=== PATIENT | male | born 1985 | race Caucasian/White ===

== ENCOUNTER 2018-12-15 18:02 | Emergency (ER) | payer BC, OTHER ==
[~2018-12-15] VITALS: Ht 188 cm; Wt 81.6 kg
--- OUTSIDE RECORDS SUMMARY | 2018-12-15 18:08 | XMS REPORT | Continuity of Care Document ---
Demographics Preferred Language Unknown Marital Status Unknown Orthodox Affiliation Unknown Race Unknown Ethnic Group Unknown Author Organization Unknown Address Unknown Allergies Active Description Code Type Severity Reaction Onset Reported/Identified Relationship to Patient Clinical Status Yes CIPRO MILD MILD Yes NO KNOWN DRUG ALLERGIES UNKNOWN UNKNOWN Medications Medication Packaging Start Date Stop Date Route Dosage Sig ONDANSETRON VIAL INJ 4 MG/2CC (ZOFRAN 2CC VIAL) MG 12/14/2018 12/14/2018 PRN ONCE LORAZEPAM 1CC VIAL INJ 2 MG/CC (ATIVAN VIAL) MG 12/14/2018 12/14/2018 PRN ONCE NORMAL SALINE 1000CC IV BAG INJ 0.9 % (NS 1000CC IV BAG) ml 12/14/2018 12/29/2018 CONTINUOUSEVERY 0 Hour Normal SALINE 0.9 % (NS 100cc) (plain bag) ml 12/14/2018 12/14/2018 ONCE&2027 Problems Date Dx Coded Attending Type Code Diagnosis Diagnosed By 12/14/2018 W 593.9 UNSPECIFIED DISORDER OF KIDNEY AND URETER 12/14/2018 W 593.9 UNSPECIFIED DISORDER OF KIDNEY AND URETER 12/14/2018 W 593.9 UNSPECIFIED DISORDER OF KIDNEY AND URETER 12/14/2018 W 275.42 HYPERCALCEMIA 12/14/2018 W 593.9 UNSPECIFIED DISORDER OF KIDNEY AND URETER 12/14/2018 W E83.52 HYPERCALCEMIA 12/14/2018 W 275.42 HYPERCALCEMIA 12/14/2018 W 593.9 UNSPECIFIED DISORDER OF KIDNEY AND URETER 12/14/2018 W E83.52 HYPERCALCEMIA 12/14/2018 W 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 12/14/2018 W 275.42 HYPERCALCEMIA 12/14/2018 W 593.9 UNSPECIFIED DISORDER OF KIDNEY AND URETER 12/14/2018 W E83.41 HYPERMAGNESEMIA 12/14/2018 W E83.52 HYPERCALCEMIA 12/14/2018 W 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 12/14/2018 W 275.42 HYPERCALCEMIA 12/14/2018 W 593.9 UNSPECIFIED DISORDER OF KIDNEY AND URETER 12/14/2018 W 791.9 OTHER NONSPECIFIC FINDINGS ON EXAMINATION OF URINE 12/14/2018 W E83.41 HYPERMAGNESEMIA 12/14/2018 W E83.52 HYPERCALCEMIA 12/14/2018 W 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, NOT ELSEWHERE CLASSIFIED 12/14/2018 W 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 12/14/2018 W 275.42 HYPERCALCEMIA 12/14/2018 W 593.9 UNSPECIFIED DISORDER OF KIDNEY AND URETER 12/14/2018 W 791.9 OTHER NONSPECIFIC FINDINGS ON EXAMINATION OF URINE 12/14/2018 W E83.41 HYPERMAGNESEMIA 12/14/2018 W E83.52 HYPERCALCEMIA 12/14/2018 W 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, NOT ELSEWHERE CLASSIFIED 12/14/2018 W 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 12/14/2018 W 275.42 HYPERCALCEMIA 12/14/2018 W 277.4 DISORDERS OF BILIRUBIN EXCRETION 12/14/2018 W 593.9 UNSPECIFIED DISORDER OF KIDNEY AND URETER 12/14/2018 W 791.9 OTHER NONSPECIFIC FINDINGS ON EXAMINATION OF URINE 12/14/2018 W E80.6 OTHER DISORDERS OF BILIRUBIN METABOLISM 12/14/2018 W E83.41 HYPERMAGNESEMIA 12/14/2018 W E83.52 HYPERCALCEMIA 12/14/2018 W 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, NOT ELSEWHERE CLASSIFIED 12/14/2018 W 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 12/14/2018 W 275.42 HYPERCALCEMIA 12/14/2018 W 277.4 DISORDERS OF BILIRUBIN EXCRETION 12/14/2018 W 593.9 UNSPECIFIED DISORDER OF KIDNEY AND URETER 12/14/2018 W 791.9 OTHER NONSPECIFIC FINDINGS ON EXAMINATION OF URINE 12/14/2018 W E80.6 OTHER DISORDERS OF BILIRUBIN METABOLISM 12/14/2018 W E83.41 HYPERMAGNESEMIA 12/14/2018 W E83.52 HYPERCALCEMIA 12/14/2018 W 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, NOT ELSEWHERE CLASSIFIED 12/14/2018 W 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 12/14/2018 W 275.42 HYPERCALCEMIA 12/14/2018 W 277.4 DISORDERS OF BILIRUBIN EXCRETION 12/14/2018 W 593.9 UNSPECIFIED DISORDER OF KIDNEY AND URETER 12/14/2018 W 791.9 OTHER NONSPECIFIC FINDINGS ON EXAMINATION OF URINE 12/14/2018 W E80.6 OTHER DISORDERS OF BILIRUBIN METABOLISM 12/14/2018 W E83.41 HYPERMAGNESEMIA 12/14/2018 W E83.52 HYPERCALCEMIA 12/14/2018 W 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, NOT ELSEWHERE CLASSIFIED 12/14/2018 W 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 12/14/2018 W 275.42 HYPERCALCEMIA 12/14/2018 W 277.4 DISORDERS OF BILIRUBIN EXCRETION 12/14/2018 W 593.9 UNSPECIFIED DISORDER OF KIDNEY AND URETER 12/14/2018 W 729.82 CRAMP OF LIMB 12/14/2018 W 791.9 OTHER NONSPECIFIC FINDINGS ON EXAMINATION OF URINE 12/14/2018 W E80.6 OTHER DISORDERS OF BILIRUBIN METABOLISM 12/14/2018 W E83.41 HYPERMAGNESEMIA 12/14/2018 W E83.52 HYPERCALCEMIA 12/14/2018 W 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, NOT ELSEWHERE CLASSIFIED 12/14/2018 W G47.62 SLEEP RELATED LEG CRAMPS 12/14/2018 W 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 12/14/2018 W 275.42 HYPERCALCEMIA 12/14/2018 W 277.4 DISORDERS OF BILIRUBIN EXCRETION 12/14/2018 W 593.9 UNSPECIFIED DISORDER OF KIDNEY AND URETER 12/14/2018 W 729.82 CRAMP OF LIMB 12/14/2018 W 791.9 OTHER NONSPECIFIC FINDINGS ON EXAMINATION OF URINE 12/14/2018 W E80.6 OTHER DISORDERS OF BILIRUBIN METABOLISM 12/14/2018 W E83.41 HYPERMAGNESEMIA 12/14/2018 W E83.52 HYPERCALCEMIA 12/14/2018 W 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, NOT ELSEWHERE CLASSIFIED 12/14/2018 W G47.62 SLEEP RELATED LEG CRAMPS 12/14/2018 W 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 12/14/2018 W 275.42 HYPERCALCEMIA 12/14/2018 W 277.4 DISORDERS OF BILIRUBIN EXCRETION 12/14/2018 W 593.9 UNSPECIFIED DISORDER OF KIDNEY AND URETER 12/14/2018 W 729.82 CRAMP OF LIMB 12/14/2018 W 791.9 OTHER NONSPECIFIC FINDINGS ON EXAMINATION OF URINE 12/14/2018 W E80.6 OTHER DISORDERS OF BILIRUBIN METABOLISM 12/14/2018 W E83.41 HYPERMAGNESEMIA 12/14/2018 W E83.52 HYPERCALCEMIA 12/14/2018 W 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, NOT ELSEWHERE CLASSIFIED 12/14/2018 W G47.62 SLEEP RELATED LEG CRAMPS 12/14/2018 W 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 12/14/2018 W 275.42 HYPERCALCEMIA 12/14/2018 W 277.4 DISORDERS OF BILIRUBIN EXCRETION 12/14/2018 W 593.9 UNSPECIFIED DISORDER OF KIDNEY AND URETER 12/14/2018 W 729.82 CRAMP OF LIMB 12/14/2018 W 791.9 OTHER NONSPECIFIC FINDINGS ON EXAMINATION OF URINE 12/14/2018 W E80.6 OTHER DISORDERS OF BILIRUBIN METABOLISM 12/14/2018 W E83.41 HYPERMAGNESEMIA 12/14/2018 W E83.52 HYPERCALCEMIA 12/14/2018 W 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, NOT ELSEWHERE CLASSIFIED 12/14/2018 W G47.62 SLEEP RELATED LEG CRAMPS 12/14/2018 W R25.2 CRAMP AND SPASM 12/14/2018 W 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 12/14/2018 W 275.42 HYPERCALCEMIA 12/14/2018 W 277.4 DISORDERS OF BILIRUBIN EXCRETION 12/14/2018 W 593.9 UNSPECIFIED DISORDER OF KIDNEY AND URETER 12/14/2018 W 729.82 CRAMP OF LIMB 12/14/2018 W 791.9 OTHER NONSPECIFIC FINDINGS ON EXAMINATION OF URINE 12/14/2018 W E80.6 OTHER DISORDERS OF BILIRUBIN METABOLISM 12/14/2018 W E83.41 HYPERMAGNESEMIA 12/14/2018 W E83.52 HYPERCALCEMIA 12/14/2018 W 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, NOT ELSEWHERE CLASSIFIED 12/14/2018 W G47.62 SLEEP RELATED LEG CRAMPS 12/14/2018 W R25.2 CRAMP AND SPASM 12/14/2018 W 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 12/14/2018 W 275.42 HYPERCALCEMIA 12/14/2018 W 277.4 DISORDERS OF BILIRUBIN EXCRETION 12/14/2018 W 593.9 UNSPECIFIED DISORDER OF KIDNEY AND URETER 12/14/2018 W 729.82 CRAMP OF LIMB 12/14/2018 W 791.9 OTHER NONSPECIFIC FINDINGS ON EXAMINATION OF URINE 12/14/2018 W E80.6 OTHER DISORDERS OF BILIRUBIN METABOLISM 12/14/2018 W E83.41 HYPERMAGNESEMIA 12/14/2018 W E83.52 HYPERCALCEMIA 12/14/2018 W 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, NOT ELSEWHERE CLASSIFIED 12/14/2018 W G47.62 SLEEP RELATED LEG CRAMPS 12/14/2018 W R25.2 CRAMP AND SPASM 12/14/2018 W 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 Results Test Result Range Comprehensive Metabolic Panel - 12/14/18 17:56 Albumin 6.1 g/dL 3.6-5.1 ALP 71 U/L 35-130 ALT 27 U/L 6-45 Anion Gap 28 6-14 AST 62 U/L 2-40 BUN 18 mg/dL 5-25 Calcium 12.5 mg/dL 8.3-10.4 Chloride 97 mmol/L 95-114 CO2 14 mEq/L 22-33 Creat 2.10 mg/dL 0.50-1.50 eGFR 37 mL/min/1.73m2 >59 Globulin 3.5 g/dL 2.3-3.5 Glucose 134 mg/dL 70-110 Osmo 281 280-295 Potassium 5.4 mmol/L 3.5-5.3 Sodium 134 mmol/L 134-148 TBil 2.3 mg/dL 0.2-1.2 TP 9.6 g/dL 6.0-8.3 Lipase - 12/14/18 17:56 Lipase 13 U/L 7-59 Urinalysis - 12/14/18 17:56 Icotest Positive Negative Urine Casts Hyaline Urine Volume Urine Volume Sufficient (10mL) Urine Yeast No Yeast present Urine-Appearance Slightly Cloudy Clear Urine-Bacteria Negative Urine-Bilirubin 3+ Negative Urine-Blood Negative Negative Urine-Color Brown Colorless-Lt. Yellow Urine-Epithelial Cells 5-10/HPF Urine-Glucose Negative Negative Urine-Ketones 3+ Negative Urine-Leukocytes Negative Negative Urine-Mucus 2+ Urine-Nitrite Negative Negative Urine-Other Urine Saved if Culture Needed (48hrs from time of collection) Urine-pH 5.0 5-8.5 Urine-Protein 2+ Negative Urine-RBC Negative Urine-Specific [place] >=1.030 1.000-1.030 Urine-WBC Nothing Seen on Microscopic Urobilinogen 1.0 E.U./dL 0.2-1.0 Cardiac Panel - 12/14/18 18:00 CK 470 U/L 26-174 CK-MB 2.1 ng/ml 0.0-9.2 Myoglobin 324.8 ng/ml 1.6-154.9 Troponin <0.020 ng/mL 0.0-0.4 Rapid Drug Screen + ETOH,Medical - 12/14/18 18:01 Amphetamine NEGATIVE NEGATIVE Barbiturates NEGATIVE NEGATIVE Benzodiazepines NEGATIVE NEGATIVE Cocaine NEGATIVE NEGATIVE Ethanol, Urine <10.00 mg/dL 20.00-80.00 Marijuana POSITIVE NEGATIVE Methylenedioxymethamphetamine NEGATIVE NEGATIVE Opiates NEGATIVE NEGATIVE Oxycodone NEGATIVE NEGATIVE Phencyclidine NEGATIVE NEGATIVE Propoxyphene NEGATIVE NEGATIVE Tricyclic Antidepressant NEGATIVE NEGATIVE Magnesium - 12/14/18 18:01 Mg++ 3.2 mg/dL 1.6-2.6 Sed Rate - 12/14/18 18:23 Sed Rate 1 mm/hr 0-9 Protime - 12/14/18 18:41 INR 1.1 1.0-4.0 Protime 13.0 Sec 9.9-12.8 Thyroid Stimulating Hormone - 12/14/18 18:58 TSH 1.17 mIU/mL 0.32-5.00 Rapid HIV - 12/14/18 19:56 HIV 1/2 Antibody Non-Reactive Non-Reactive HIV-1 p24 Antigen Non-Reactive Non-Reactive Lactic Acid - 12/14/18 20:30 Lactic Acid 11.9 mg/dL 4.5-19.8 Encounters ACCT No. Visit Date/Time Discharge Status Pt. Type Provider Facility Loc./Unit Complaint [id number] 12/14/2018 18:00:05 Document Registration [id number] 12/14/2018 17:28:00 Document Registration [id number] 12/14/2018 17:28:00 Document Registration
[2018-12-15 18:46] LABS: BASOPHILS % (AUTO) 1 % (0-10); BILIRUBIN,URINE NEGATIVE (NEGATIVE); CLARITY,URINE CLEAR; COLOR,URINE YELLOW; EOSINOPHILS # (AUTO) 0.2 10^3/uL (0.0-0.3); EOSINOPHILS % (AUTO) 3 % (0-10); GLUCOSE, URINE (UA) NEGATIVE (NEGATIVE); HEMATOCRIT 39 % (40-54); HEMOGLOBIN 14.5 G/DL (13.3-17.7); KETONES,URINE NEGATIVE (NEGATIVE); LEUKOCYTE ESTERASE ,URINE 1+ (NEGATIVE); LYMPHOCYTES # (AUTO) 2.1 X 10^3 (1.0-4.0); LYMPHOCYTES % (AUTO) 33 % (12-44); MEAN CORPUSCULAR HEMOGLOBIN 33 PG (25-34); MEAN CORPUSCULAR HGB CONC 37 G/DL (32-36); MEAN CORPUSCULAR VOLUME 90 FL (80-99); MEAN PLATELET VOLUME 10.2 FL (7.4-10.4); MONOCYTES # (AUTO) 0.7 X 10^3 (0.0-1.0); MONOCYTES % (AUTO) 11 % (0-12); NEUTROPHILS # (AUTO) 3.5 X 10^3 (1.8-7.8); NEUTROPHILS % (AUTO) 53 % (42-75); NITRITE,URINE NEGATIVE (NEGATIVE); PH,URINE 6 (5-9); PLATELET COUNT 137 10^3/uL (130-400); PROTEIN,URINE NEGATIVE (NEGATIVE); RED CELL DISTRIBUTION WIDTH 12.5 % (10.0-14.5); UROBILINOGEN,URINE NORMAL (NORMAL); WHITE BLOOD COUNT 6.6 10^3/uL (4.3-11.0)
[2018-12-15 18:53] LABS: BACTERIA,URINE NEGATIVE /HPF; RBC,URINE RARE /HPF
[2018-12-15 19:06] LABS: ALANINE AMINOTRANSFERASE 21 U/L (0-55); ALBUMIN 5.1 GM/DL (3.2-4.5); ALKALINE PHOSPHATASE 50 U/L (40-136); BILIRUBIN,TOTAL 1.1 MG/DL (0.1-1.0); BUN/CREATININE RATIO 13; CALCIUM 10.1 MG/DL (8.5-10.1); CARBON DIOXIDE 24 MMOL/L (21-32); CHLORIDE 104 MMOL/L (98-107); CREATINE KINASE 449 U/L (30-200); CREATININE SERUM 0.97 MG/DL (0.60-1.30); GFR ESTIMATED > 60; GLUCOSE 104 MG/DL (70-105); POTASSIUM 3.8 MMOL/L (3.6-5.0); SODIUM 137 MMOL/L (135-145); TOTAL PROTEIN 7.4 GM/DL (6.4-8.2)
[2018-12-15 19:18] LABS: FIBRIN DEGRADATION PRODUCTS 0.24 UG/ML (0.00-0.49)
[2018-12-15] MEDS ORDERED: SULF-222 PO (19:52)
--- NOTE | 2018-12-15 19:52 | ED General ---
General Chief Complaint: General Problems/Pain Stated Complaint: VOMITING,DEHYDRATION SYMPTOMS Nursing Triage Note: PT TO TRIAGE NEEDS LABS TODAY TO MAKE SURE THAT HIS LAB WORK HAS IMPROVED, WAS VERY SICK AND HAD TO LEAVE ED IN [facility] D/T WORK PROB. PT STATES DID GET 3L FLUIDS AND FEELS BETTER TODAY. COPIES OF LAB WORK TO CHART. Nursing Sepsis Screen: No Definite Risk History of Present Illness Date Seen by Provider: December 15, 2018 Time Seen by Provider: 18:30 Initial Comments 33-year-old male reports for follow-up labs after being seen at [facility] yesterday. The patient left [facility] due to work commitments. Patient reports significant improvement since yesterday. He has been drinking Gatorade 3 bottles daily and multiple bottles of water. He reports improved urine output today. No nausea, vomiting, or diarrhea today. Timing/Duration: 12-24 Hours Allergies and Home Medications Allergies Coded Allergies: ciprofloxacin (Verified Allergy, Unknown, 12/15/18) Home Medications Sulfamethoxazole/Trimethoprim 1 Each Tablet, 1 EACH PO BID Prescribed by: DELMI CARDONA on 12/15/181951 Patient Home Medication List Home Medication List Reviewed: Yes Review of Systems Review of Systems Constitutional: no symptoms reported, see HPI Musculoskeletal: see HPI, muscle cramps (improving) All Other Systems Reviewed Negative Unless Noted: Yes Past Nvdyxgb-Dmiwqx-Hufqsy Hx Patient Social History Alcohol Use: Rarely Uses Recreational Drug Use: Yes (POT) Smoking Status: Current Everyday Smoker Type Used: Cigarettes Recent Foreign Travel: No Contact w/Someone Who Travel: No Recent Infectious Disease Expo: No Recent Hopitalizations: No Seasonal Allergies Seasonal Allergies: No Past Medical History Surgeries: No Respiratory: No Cardiac: No Neurological: No Genitourinary: No Gastrointestinal: No Musculoskeletal: No Endocrine: No HEENT: No Cancer: No Psychosocial: No Integumentary: No Blood Disorders: No Physical Exam Vital Signs Vital Signs - First Documented 12/15/18 18:10 Temp 96.0 Pulse 78 Resp 18 B/P (MAP) 113/74 (87) Pulse Ox 98 Capillary Refill : Less Than 3 Seconds Height, Weight, BMI Height: 6'2.00" Weight: 180lbs. oz. 81.456204na; BMI Method:Stated General Appearance: No Apparent Distress, WD/WN Eyes: Bilateral Eye Normal Inspection, Bilateral Eye PERRL, Bilateral Eye EOMI HEENT: PERRL/EOMI, TMs Normal, Normal ENT Inspection, Pharynx Normal Neck: Full Range of Motion, Normal Inspection, Non Tender, Supple Respiratory: Chest Non Tender, Lungs Clear, Normal Breath Sounds Cardiovascular: Regular Rate, Rhythm, No Edema, No Murmur, Normal Peripheral Pulses Gastrointestinal: Normal Bowel Sounds, Non Tender, Soft Extremity: Normal Capillary Refill, Normal Inspection, Normal Range of Motion; No No Calf Tenderness; No Pedal Edema; No Calf Tenderness, No Swelling Neurologic/Psychiatric: Alert, Oriented x3, No Motor/Sensory Deficits, Normal Mood/Affect Skin: Normal Color, Warm/Dry, Other (skin turgor less than 3 seconds) Progress/Results/Core Measures Suspected Sepsis Recent Fever Within 48 Hours: No Infection Criteria Present: None New/Unexplained Altered Menta: No Sepsis Screen: No Definite Risk SIRS Temperature:96.0 Pulse: 78 Respiratory Rate: 18 Laboratory Tests 12/15/18 18:38: White Blood Count 6.6 Blood Pressure 113 /74 Mean: 87 Laboratory Tests 12/15/18 18:38: Creatinine 0.97, INR Comment 1.0, Platelet Count 137, Total Bilirubin 1.1H Results/Orders Lab Results Laboratory Tests Test 12/15/18 18:38 Range/Units White Blood Count 6.6 4.3-11.0 10^3/uL Red Blood Count 4.34 L 4.35-5.85 10^6/uL Hemoglobin 14.5 13.3-17.7 G/DL Hematocrit 39 L 40-54 % Mean Corpuscular Volume 90 80-99 FL Mean Corpuscular Hemoglobin 33 25-34 PG Mean Corpuscular Hemoglobin Concent 37 H 32-36 G/DL Red Cell Distribution Width 12.5 10.0-14.5 % Platelet Count 137 130-400 10^3/uL Mean Platelet Volume 10.2 7.4-10.4 FL Neutrophils (%) (Auto) 53 42-75 % Lymphocytes (%) (Auto) 33 12-44 % Monocytes (%) (Auto) 11 0-12 % Eosinophils (%) (Auto) 3 0-10 % Basophils (%) (Auto) 1 0-10 % Neutrophils # (Auto) 3.5 1.8-7.8 X 10^3 Lymphocytes # (Auto) 2.1 1.0-4.0 X 10^3 Monocytes # (Auto) 0.7 0.0-1.0 X 10^3 Eosinophils # (Auto) 0.2 0.0-0.3 10^3/uL Basophils # (Auto) 0.0 0.0-0.1 10^3/uL Prothrombin Time 14.0 12.2-14.7 SEC INR Comment 1.0 0.8-1.4 Activated Partial Thromboplast Time 25 24-35 SEC D-Dimer 0.24 0.00-0.49 UG/ML Urine Color YELLOW Urine Clarity CLEAR Urine pH 6 5-9 Urine Specific [place] 1.010 L 1.016-1.022 Urine Protein NEGATIVE NEGATIVE Urine Glucose (UA) NEGATIVE NEGATIVE Urine Ketones NEGATIVE NEGATIVE Urine Nitrite NEGATIVE NEGATIVE Urine Bilirubin NEGATIVE NEGATIVE Urine Urobilinogen NORMAL NORMAL MG/DL Urine Leukocyte Esterase 1+ H NEGATIVE Urine RBC (Auto) NEGATIVE NEGATIVE Urine RBC RARE /HPF Urine WBC 5-10 H /HPF Urine Squamous Epithelial Cells NONE /HPF Urine Crystals NONE /LPF Urine Bacteria NEGATIVE /HPF Urine Casts NONE /LPF Urine Mucus NEGATIVE /LPF Urine Culture Indicated YES Sodium Level 137 135-145 MMOL/L Potassium Level 3.8 3.6-5.0 MMOL/L Chloride Level 104 98-107 MMOL/L Carbon Dioxide Level 24 21-32 MMOL/L Anion Gap 9 5-14 MMOL/L Blood Urea Nitrogen 13 7-18 MG/DL Creatinine 0.97 0.60-1.30 MG/DL Estimat Glomerular Filtration Rate > 60 BUN/Creatinine Ratio 13 Glucose Level 104 70-105 MG/DL Calcium Level 10.1 8.5-10.1 MG/DL Corrected Calcium 8.5-10.1 MG/DL Total Bilirubin 1.1 H 0.1-1.0 MG/DL Aspartate Amino Transf (AST/SGOT) 40 H 5-34 U/L Alanine Aminotransferase (ALT/SGPT) 21 0-55 U/L Alkaline Phosphatase 50 40-136 U/L Total Creatine Kinase 449 H 30-200 U/L Myoglobin 123.9 H 10.0-92.0 NG/ML Total Protein 7.4 6.4-8.2 GM/DL Albumin 5.1 H 3.2-4.5 GM/DL My Orders Orders - DELMI CARDONA Cbc With Automated Diff (12/15/18 18:23) Comprehensive Metabolic Panel (12/15/18 18:23) Creatine Kinase (12/15/18 18:23) Fibrin Degradation Products (12/15/18 18:23) Protime With Inr (12/15/18 18:23) Partial Thromboplastin Time (12/15/18 18:23) Ua Culture If Indicated (12/15/18 18:23) Myoglobin Serum (12/15/18 18:25) Ekg Tracing (12/15/18 18:25) Urine Culture (12/15/18 18:38) Vital Signs/I&O 12/15/18 12/15/18 18:10 19:57 Temp 96.0 Pulse 78 80 Resp 18 16 B/P (MAP) 113/74 (87) 115/70 (85) Pulse Ox 98 98 Capillary Refill : Less Than 3 Seconds Blood Pressure Mean: 87 Progress Note : Time: 18:30 Progress Note Patient seen and evaluated, will repeat labs and reevaluate. 1939 labs improved in comparison to yesterday. Treat UTI with antibiotics. Encouraged she continued to adequately hydrate and watch urine output. Discharge instructions and return precautions reviewed with him. All questions answered. Departure Impression Primary Impression: Urinary tract infection Qualified Codes: N30.01 - Acute cystitis with hematuria Additional Impression: Dehydration, mild Disposition: 01 HOME, SELF-CARE Condition: Improved Departure-Patient Inst. Decision time for Depature: 19:40 Referrals: NO,LOCAL PHYSICIAN (PCP/Family) Primary Care Physician Patient Instructions: Dehydration, Adult (DC), Urinary Tract Infection, Adult (DC) Add. Discharge Instructions: Continue to increase water and Gatorade intake. Follow-up with your primary care provider in one week as scheduled. Return to emergency department for diarrhea, vomiting, muscle cramps, decreased urine output or other concerns. Take antibiotic as prescribed. Drink 1 glass of cranberry juice or eat 1 cup of fresh blueberries daily. All discharge instructions reviewed with patient and/or family. Voiced understanding. Scripts Sulfamethoxazole/Trimethoprim (Sulfamethoxazole-Tmp Ds Tablet) 1 Each Tablet 1 EACH PO BID, #10 TAB 0 Refills Prov: DELMI CARDONA 12/15/18 DELMI CARDONA December 15, 2018 19:52
[2018-12-15 19:57] VITALS: BP 115/70
== END 2018-12-15 19:58 | disposition home or self-care (01) ==
LOC: ER 18:05
DX: N39.0 Urinary tract infection, site not specified (principal); E86.0 Dehydration; F12.10 Cannabis abuse, uncomplicated; F17.210 Nicotine dependence, cigarettes, uncomplicated; Z88.1 Allergy status to other antibiotic agents
CPT/HCPCS: 36415; 80053; 81000; 82550; 83874; 85025; 85379; 85610; 85730; 87088; 93005